=== PATIENT | male | born 1995 | race Caucasian/White ===

== ENCOUNTER 2023-06-12 12:57 | Emergency (ER) | payer OTHER ==
--- NOTE | 2023-06-12 13:22 | EDPHYS ---
Physician Documentation [facility] Name: Luis M Holbrook Age: 28 yrs Sex: Male : 1995 Arrival Date: 06/12/2023 Time: 12:57 Bed 13 Private MD: ED Physician Seymour Sosa HPI: 06/11 13:22 This 28 yrs old Male presents to ER via Ambulatory with complaints of Cat Bite. sb4 13:22 The patient was bitten on the dorsum of left hand. Onset: The symptoms/episode sb4 began/occurred last night. Animal information: The animal was reported to appear healthy. Animal's vaccinations are up to date. The animal is known and can be quarantined. Secondary to the bite the patient reports a puncture wound, swelling, warmth. Associated signs and symptoms: Pertinent positives: erythema at site, pain at site, swelling at site. The patient has not experienced similar symptoms in the past. The patient has not recently seen a physician. Historical: - Allergies: 13:11 No Known Allergies; nj1 - PMHx: 13:11 None; nj1 - PSHx: 13:11 Operative procedure on knee; nj1 - Immunization history:: Client reports receiving the 2nd dose of the Covid vaccine. - Infectious Disease History:: Denies. - Social history:: Smoking status: Reported history of juuling and/or vaping. ROS: 13:22 Constitutional: Negative for fever, chills, and weight loss, sb4 13:22 Skin: Positive for erythema, puncture, swelling, 13:22 All other systems are negative, sb4 Exam: 13:22 Constitutional: This is a well developed, well nourished patient who is awake, alert, sb4 and in no acute distress. Head/Face: Normocephalic, atraumatic. Eyes: Extra-ocular motions intact. Periorbital areas with no swelling, redness, or edema. ENT: Mucous membranes moist. MS/ Extremity: Pulses equal, no cyanosis. Neurovascular intact. Full, normal range of motion. Neuro: Awake and alert, GCS 15, oriented to person, place, time, and situation. Motor strength 5/5 in all extremities. Sensory grossly intact. 13:22 Skin: injury, puncture(s), that are superficial, of the dorsum of left hand, with surrounding cellulitis, Vital Signs: 13:08 BP 121 / 99; Pulse 78; Resp 18; Temp 97.2(TE); Pulse Ox 100% ; Weight 113.4 kg; Height nj1 6 ft. 1 in. ; Pain 6/10; 13:08 Body Mass Index 32.98 (113.40 kg, 185.42 cm) nj1 13:08 Pain Scale: Adult nj1 MDM: 13:08 Patient medically screened. sb4 13:22 Data reviewed: vital signs, nurses notes, and as a result, I will discharge patient. sb4 Counseling: I had a detailed discussion with the patient and/or guardian regarding the historical points, exam findings, and any diagnostic results supporting the discharge/admit diagnosis, the presence of at least one elevated blood pressure reading (>120/80) during this emergency department visit, to return to the emergency department if symptoms worsen or persist or if there are any questions or concerns that arise at home. Administered Medications: 13:29 Drug: Amoxicillin-Clavulanate PO 875 mg PO once Route: PO; iw Disposition: 13:45 Co-signature as Attending Physician, Seymour Sosa MD I reviewed the patient's care rt provided by the Advanced Practice Provider and agree with the diagnosis and treatment plan. Disposition Summary: 06/12/23 13:21 Discharge Ordered Notes: Location: Home sb4 Problem: new sb4 Symptoms: are unchanged sb4 Condition: Stable sb4 Diagnosis - cat bite, cellulitis of right hand sb4 - cat bite, cellulitis of left hand sb4 Followup: sb4 - With: Emergency Department - When: As needed - Reason: Trouble breathing, Worsening of condition Discharge Instructions: - Discharge Summary Sheet sb4 - Animal Bite, Adult, [id number] sb4 - Cellulitis, Adult, [id number] sb4 Forms: - Thank You Letter sb4 - Antibiotic Education sb4 - Patient Portal Instructions sb4 - Leadership Thank You Letter sb4 Prescriptions: - Augmentin 875-125 mg Oral Tablet - take 1 tablet ORAL route every 12 hours for 10 days; 20 tablet; Refills: 0, sb4 Product Selection Permitted Signatures: Adina Reyes RN RN iw Jenna Lim PA-C PA-C sb4 Seymour Sosa MD MD rt Maya Potter RN RN nj1
--- NOTE | 2023-06-12 13:22 | ER ---
Nurse's Notes [facility] Name: Luis M Holbrook Age: 28 yrs Sex: Male : 1995 Arrival Date: 06/12/2023 Time: 12:57 Bed 13 Private MD: Diagnosis: cat bite, cellulitis of left hand Presentation: 06/11 13:08 Chief complaint: Patient states: His cat bit his left hand last night, woke up and nj1 noticed swelling and pain. Coronavirus screen: Vaccine status: Patient reports receiving the 2nd dose of the covid vaccine. Ebola Screen: Patient denies travel to an Ebola-affected area in the 21 days before illness onset. Initial Sepsis Screen: Does the patient meet any 2 criteria? No. Patient's initial sepsis screen is negative. Does the patient have a suspected source of infection? No. Patient's initial sepsis screen is negative. Risk Assessment: Do you want to hurt yourself or someone else? Patient reports no desire to harm self or others. Onset of symptoms was June 11, 2023. 13:08 Method Of Arrival: Ambulatory [facility] 13:08 Acuity: [place] [facility] Triage Assessment: 13:31 Bite description: bite sustained to left hand by a cat, animal information: iw vaccination(s) is current. General: Appears in no apparent distress. Historical: - Allergies: 13:11 No Known Allergies; nj1 - PMHx: 13:11 None; [facility] - PSHx: 13:11 Operative procedure on knee; [facility] - Immunization history:: Client reports receiving the 2nd dose of the Covid vaccine. - Infectious Disease History:: Denies. - Social history:: Smoking status: Reported history of juuling and/or vaping. Screenin:32 [facility] ED Fall Risk Assessment (Adult) History of falling in the last 3 months, iw including since admission No falls in past 3 months (0 pts) Confusion or Disorientation No (0 pts) Intoxicated or Sedated No (0 pts) Impaired Gait No (0 pts) Mobility Assist Device Used No (0 pt) Altered Elimination No (0 pt) Score/Fall Risk Level 0 - 2 = Low Risk. Abuse screen: Denies threats or abuse. Denies injuries from another. 13:32 Nutritional screening: No deficits noted. Tuberculosis screening: No symptoms or risk iw factors identified. Assessment: 13:31 General: Appears in no apparent distress. Behavior is calm, cooperative. Pain: iw Complains of pain in left hand and dorsum of left hand. Neuro: Level of Consciousness is awake, alert, obeys commands, Oriented to person, place, time, situation, Moves all extremities. Full function. Derm: Skin Skin is red, Wound noted dorsum of left hand. Injury Description: Bite sustained to left hand and dorsum of left hand caused by a cat, is infected, from animal, was sustained 1 day ago. Vital Signs: 13:08 BP 121 / 99; Pulse 78; Resp 18; Temp 97.2(TE); Pulse Ox 100% ; Weight 113.4 kg; Height nj1 6 ft. 1 in. ; Pain 6/10; 13:08 Body Mass Index 32.98 (113.40 kg, 185.42 cm) nj1 13:08 Pain Scale: Adult [facility] ED Course: 13:03 Patient arrived in ED. mr 13:07 [facility] sb4 13:07 Seymour Sosa MD is Attending Physician. sb4 13:11 Triage completed. nj1 13:12 Arm band placed on right wrist. nj1 13:22 Adina Reyes, RN is Primary Nurse. iw 13:31 Patient has correct armband on for positive identification. iw 13:32 No provider procedures requiring assistance completed. Patient did not have IV access iw during this emergency room visit. Administered Medications: 13:29 Drug: Amoxicillin-Clavulanate PO 875 mg PO once Route: PO; iw Medication: 13:35 VIS not applicable for this client. iw Outcome: 13:21 Discharge ordered by . sb4 13:39 Discharged to home ambulatory, iw 13:39 Condition: good 13:39 Discharge instructions given to patient, Instructed on discharge instructions, follow up and referral plans. medication usage, Demonstrated understanding of instructions, follow-up care, medications, Prescriptions given X 1, 13:40 Patient left the ED. iw Signatures: Cynthia Trammell, Reg Reg mr Adina Reyes, RN RN iw Jenna Lim PA-C PA-C sb4 Maya Potter RN RN nj1 Corrections: (The following items were deleted from the chart) 13:12 13:08 Acuity: [place] [address] [place] [id number]
[2023-06-12] MEDS ORDERED: AMOX/K CLAV 875 MG TAB ONE (13:25)
[2023-06-12 19:12] VITALS: BP 121/99; TEMP 97.2; O2SAT 100
== END 2023-06-12 13:40 | disposition home or self-care (01) ==
LOC: ER 12:57
DX: L03.114 Cellulitis of left upper limb (principal); L03.113 Cellulitis of right upper limb; W55.01XA Bitten by cat, initial encounter
CPT/HCPCS: 99283